=== PATIENT | female | born 1975 | race Caucasian/White ===

== ENCOUNTER 2017-04-12 08:40 | Emergency (ER) | payer MEDICAID ==
[~2017-04-12] VITALS: Ht 154.9 cm; Wt 112.0 kg
[2017-04-12 08:42] VITALS: BP 120/82
[2017-04-12] MEDS ORDERED: KETOROLAC 30 MG/1 ML ONE (09:12)
[2017-04-12] MEDS ORDERED: DIAZEPAM 5 MG TABLET ONE (09:12)
[2017-04-12] MEDS ORDERED: KETOROLAC 30 MG/1 ML IM ONE (09:30)
[2017-04-12] MEDS ORDERED: DIAZEPAM 5 MG TABLET PO ONE (09:30)
== END 2017-04-12 09:34 | disposition home or self-care (01) ==
LOC: ED 09:28
DX: S39.012A Strain of muscle, fascia and tendon of lower back, initial encounter (principal); X58.XXXA Exposure to other specified factors, initial encounter; Y93.89 Activity, other specified; Y99.8 Other external cause status; Y92.89 Other specified places as the place of occurrence of the external cause
CPT/HCPCS: 96372; 99283; J1885

== ENCOUNTER 2019-09-30 21:01 | Emergency (ER) | payer MEDICAID, OTHER ==
[~2019-09-30] VITALS: Ht 154.9 cm; Wt 116.3 kg
[2019-09-30 22:07] VITALS: BP 128/78
== END 2019-09-30 22:31 | disposition home or self-care (01) ==
LOC: ED 21:48
DX: S63.522A Sprain of radiocarpal joint of left wrist, initial encounter (principal); W18.30XA Fall on same level, unspecified, initial encounter; Y93.89 Activity, other specified; Y92.69 Other specified industrial and construction area as the place of occurrence of the external cause; Y99.8 Other external cause status
CPT/HCPCS: 29125; 99283